=== PATIENT | female | born 1955 | race Caucasian/White ===

== ENCOUNTER 2020-07-05 07:13 | Day surgery (SDC) | payer MEDICARE, BC ==
[2020-07-05] MEDS ORDERED: Propofol 200 MG/20 ML SDV IV ONE (07:14)
[2020-07-05] MEDS ORDERED: Lidocaine 1% PF 2 ML SDV INJECT ONE (07:14)
[2020-07-05] MEDS ORDERED: Sodium Chloride 0.9% 10 ML Syringe FLUSH PRN (07:15)
[2020-07-05] MEDS ORDERED: Lactated Ringers 1,000 ML IV SCH (07:15)
--- NOTE | 2020-07-05 09:35 | PCM.OPNOTE ---
- General Post-Op/Procedure Note Date of Surgery/Procedure: 07/05/20 Operative Procedure(s): c scope with cold forceps and hot loop snare bx Findings: Polyps: ascending colon x1 transverse colon x2 sigmoid x2 rectal x1 Pre Op Diagnosis: colon cancers screening Post-Op Diagnosis: Polyps: ascending colon x1. transverse colon x2. sigmoid x2. rectal x1 Anesthesia Technique: MAC Primary Surgeon: Dagoberto Ayala Anesthesia Provider: Elian Reyes Pathology: Polyps: ascending colon x1 transverse colon x2 sigmoid x2 rectal x1 Complications: None Condition: Good Free Text/Narrative:: see dictation
--- NOTE | 2020-07-05 10:41 | OR ---
DATE OF OPERATION: 07/05/2020 SURGEON: Dagoberto Ayala MD PROCEDURE PERFORMED: Colonoscopy with cold forceps and hot loop snare biopsy. PREOPERATIVE DIAGNOSIS: Colon cancer screening. POSTOPERATIVE DIAGNOSIS: Cecal polyp, transverse colon polyp x2, sigmoid colon polyps x2, and rectal polyp. INDICATIONS FOR PROCEDURE: This is a 65-year-old white female who presents for her initial screening colonoscopy, she is without complaints. DESCRIPTION OF PROCEDURE: After an excellent IV sedation was administered, digital rectal exam was performed. No marked abnormality was noted. Flexible colonoscope was inserted and advanced to the cecum. Prep was excellent. The following findings were noted: In the cecum, in the appendiceal orifice, there appeared to be a polypoid lesion. This was biopsied and obliterated with cold biopsy forceps and sent for permanent. Remainder of the ascending colon, unremarkable. Transverse colon, 2 small polypoid lesions, biopsied with cold biopsy forceps, obliterated, and sent for permanent. Descending colon, unremarkable. Sigmoid, 2 hyperplastic-appearing polyps, biopsied and submitted in 1 container, and in the rectum, at approximately 10 cm, there was a pedunculated polyp which was biopsied with the hot loop snare. This was approximately a centimeter in diameter. The patient tolerated the procedure well, was taken recovery room. Results will be sent to the patient via letter. /[id number] /[id number]
== END 2020-07-05 10:33 | disposition home or self-care (01) ==
LOC: FB.SDS 07:13
PROVIDERS: ATTEND Surgery
DX: Z12.11 Encounter for screening for malignant neoplasm of colon (principal); D12.0 Benign neoplasm of cecum; D12.3 Benign neoplasm of transverse colon; C20 Malignant neoplasm of rectum; E66.9 Obesity, unspecified; E78.5 Hyperlipidemia, unspecified; E11.9 Type 2 diabetes mellitus without complications; I10 Essential (primary) hypertension; Z79.899 Other long term (current) drug therapy; Z79.84 Long term (current) use of oral hypoglycemic drugs; Z90.49 Acquired absence of other specified parts of digestive tract; Z98.890 Other specified postprocedural states
CPT/HCPCS: 00812-QZ; 82962; 88305; J2001; J2704; J7120

== ENCOUNTER 2021-08-08 07:55 | Day surgery (SDC) | payer MEDICARE, BC ==
[2021-08-08] MEDS ORDERED: Propofol 200 MG/20 ML SDV IV ONE (07:56)
[2021-08-08] MEDS ORDERED: Lidocaine 2% 5 ML SDV INJECT ONE (07:56)
[2021-08-08] MEDS ORDERED: Lactated Ringers 1,000 ML IV ONE (07:56)
[2021-08-08] MEDS ORDERED: Lactated Ringers 1,000 ML IV SCH (08:00)
[2021-08-08] MEDS ORDERED: Sodium Chloride 0.9% 10 ML Syringe FLUSH PRN (08:00)
== END 2021-08-08 12:18 | disposition home or self-care (01) ==
LOC: FB.SDS 07:55
PROVIDERS: ATTEND Surgery
DX: Z12.11 Encounter for screening for malignant neoplasm of colon (principal); D12.2 Benign neoplasm of ascending colon; E78.00 Pure hypercholesterolemia, unspecified; I10 Essential (primary) hypertension; E11.9 Type 2 diabetes mellitus without complications; E03.9 Hypothyroidism, unspecified; E66.9 Obesity, unspecified; Z90.49 Acquired absence of other specified parts of digestive tract; Z85.038 Personal history of other malignant neoplasm of large intestine; Z68.38 Body mass index [BMI] 38.0-38.9, adult; Z80.0 Family history of malignant neoplasm of digestive organs; Z79.899 Other long term (current) drug therapy; Z79.84 Long term (current) use of oral hypoglycemic drugs; Z79.890 Hormone replacement therapy
CPT/HCPCS: 00811; 45381; 45385; 82947; 88305; J2704; J7120

== ENCOUNTER 2022-11-17 06:54 | Day surgery (SDC) | payer MEDICARE, BC ==
[~2022-11-17 06:54] MED LIST: Lactated Ringers 1,000 ML IV SCH; Sodium Chloride 0.9% 10 ML Syringe FLUSH PRN
[2022-11-17] MEDS ORDERED: Midazolam 1 MG/ML 2 ML SDV IV ONE (06:55)
[2022-11-17] MEDS ORDERED: Glycopyrrolate 0.2 MG/ML 5 ML MDV IV ONE (06:55)
[2022-11-17] MEDS ORDERED: Propofol 200 MG/20 ML SDV IV ONE (06:55)
== END 2022-11-17 10:18 | disposition home or self-care (01) ==
LOC: FB.SDS 06:54
PROVIDERS: ATTEND Surgery
DX: Z12.11 Encounter for screening for malignant neoplasm of colon (principal); D12.1 Benign neoplasm of appendix; D12.0 Benign neoplasm of cecum; D12.6 Benign neoplasm of colon, unspecified; E78.5 Hyperlipidemia, unspecified; E11.9 Type 2 diabetes mellitus without complications; I10 Essential (primary) hypertension; E78.00 Pure hypercholesterolemia, unspecified; E03.9 Hypothyroidism, unspecified; Z90.49 Acquired absence of other specified parts of digestive tract; Z80.0 Family history of malignant neoplasm of digestive organs; Z85.048 Personal history of other malignant neoplasm of rectum, rectosigmoid junction, and anus; Z79.890 Hormone replacement therapy; Z79.899 Other long term (current) drug therapy; Z79.84 Long term (current) use of oral hypoglycemic drugs
CPT/HCPCS: 00811; 82947; 88305; 93005; J2250; J2704; J3490; J7120

== ENCOUNTER 2024-12-01 07:41 | Day surgery (SDC) | payer MEDICARE, BC ==
[2024-12-01] MEDS ORDERED: Glycopyrrolate 0.2 MG/ML 5 ML MDV IV ONE (07:42)
[2024-12-01] MEDS ORDERED: Ondansetron 4 MG/2 ML SDV IVPUSH ONE (07:42)
[2024-12-01] MEDS ORDERED: Lidocaine 2% 100 MG/5 ML Syringe IVPUSH ONE (07:42)
[2024-12-01] MEDS ORDERED: Propofol 200 MG/20 ML SDV IV ONE (07:42)
[2024-12-01] MEDS ORDERED: Sodium Chloride 0.9% 10 ML Syringe FLUSH PRN (07:45)
[2024-12-01] MEDS: Lactated Ringers 1,000 ML IV SCH (08:30)
[2024-12-01] MEDS: Simethicone Drops 40 MG/0.6 ML 30 ML Bottle ONE (09:20)
== END 2024-12-01 10:42 | disposition home or self-care (01) ==
LOC: FB.SDS 07:41
PROVIDERS: ATTEND Surgery
DX: Z12.11 Encounter for screening for malignant neoplasm of colon (principal); D12.2 Benign neoplasm of ascending colon; D12.6 Benign neoplasm of colon, unspecified; E11.9 Type 2 diabetes mellitus without complications; I10 Essential (primary) hypertension; E78.5 Hyperlipidemia, unspecified; Z79.899 Other long term (current) drug therapy
CPT/HCPCS: 00811; 82947; 88305; A9270-GY; J1596; J2405; J2704; J7120